=== PATIENT | female | born 1935 | race Caucasian/White ===

== ENCOUNTER 2016-07-19 10:15 | Outpatient (CLI) | payer MEDICARE, OTHER ==
[2016-04-12 16:24] VITALS: BP 154/56
== END 2016-07-19 10:16 ==
LOC: LABRHC 10:15
PROVIDERS: ATTEND Family Medicine
DX: N39.498 Other specified urinary incontinence (principal)
CPT/HCPCS: 87086

== ENCOUNTER 2016-09-30 22:27 | Emergency (ER) | payer MEDICARE, OTHER ==
[2016-09-30] MEDS ORDERED: KETOROLAC TROMETHAMINE 60 MG/2 ML VIAL ONE (23:52)
[2016-10-01] MEDS ORDERED: LORazepam 1 MG TABLET PO ONE (00:03)
[2016-10-01] MEDS ORDERED: KETOROLAC TROMETHAMINE 60 MG/2 ML VIAL IM ONE (00:04)
--- NOTE | 2016-10-01 00:34 | Diagnostic Imaging Report ---
ADRIAN GUTIERREZ~ [facility] [address] [address] ~ ~ ~ ~ Report Submission Date: Oct 01, 2016 12:02:30 AM CDT Patient ~ Study Name: EDUARDO DARLING ~ Date: Sep 30, 2016 11:05:21 PM CDT ~ Modality Type: CR Gender: F ~ Description: PELVIS : 35 ~ Institution: [facility] Physician: ADRIAN GUTIERREZ ~ ~ ~ ~ Left hip - one-view Clinical history: ~Fall 2 hours ago. ~Pain. Findings: ~Examination left hip in single AP view fails to demonstrate evidence of fracture. ~Mild narrowing of the hip joint space is seen. ~There is no lytic or blastic lesion. Impression: 1. ~Mild degenerative changes. 2. ~No fracture. ~ Electronically signed on Oct 01, 2016 12:02:30 AM CDT by: Herber LEDESMA
--- NOTE | 2016-10-01 00:35 | Diagnostic Imaging Report ---
ADRIAN GUTIERREZ~ [facility] [address] [address] ~ ~ ~ ~ Report Submission Date: Oct 01, 2016 12:03:41 AM CDT Patient ~ Study Name: EDUARDO DARLING ~ Date: Sep 30, 2016 11:31:58 PM CDT ~ Modality Type: CR Gender: F ~ Description: LOWER EXTREMITY : 35 ~ Institution: [facility] Physician: ADRIAN GUTIERREZ ~ ~ ~ ~ Bilateral knees - three views Clinical history: ~Fall 2 hours ago. ~Pain. ~History of knee replacements. Findings: ~Examination of the right and left knees in AP, lateral and sunrise views demonstrates bilateral total knee replacements. ~Prosthetic components are normally seated in the unga bony structures. ~There is no evident fracture and no lytic or blastic lesion. ~There is no joint effusion. Impression: 1. ~Postop bilateral total knee replacements. 2. ~No fracture. ~ Electronically signed on Oct 01, 2016 12:03:41 AM CDT by: Herber LEDESMA
--- NOTE | 2016-10-01 00:37 | Diagnostic Imaging Report ---
ADRIAN GUTIERREZ~ [facility] [address] [address] ~ ~ ~ ~ Report Submission Date: Oct 01, 2016 12:05:49 AM CDT Patient ~ Study Name: EDUARDO DARLING ~ Date: Sep 30, 2016 10:58:19 PM CDT ~ Modality Type: CR Gender: F ~ Description: SPINE : 35 ~ Institution: [facility] Physician: ADRIAN GUTIERREZ ~ ~ ~ ~ Lumbar spine - three views Clinical history: ~Fall 2 hours ago. ~Lower back pain. Findings: ~Examination of the lumbar spine in AP, lateral and lateral coned- down views demonstrates post vertebroplasty changes at T12 and L1. ~There is compression deformity of the superior endplate of L2 that is of uncertain age. ~ Degenerative changes are seen throughout the facet joints. ~Vascular calcification is incidentally noted. Impression: 1. ~Postop vertebroplasty T12 and L1. 2. ~Compression of superior endplate of L2 with 20% loss of vertebral height that is of uncertain age. 3. ~Spondylosis. ~ Electronically signed on Oct 01, 2016 12:05:49 AM CDT by: Herber LEDESMA
[2016-10-01 05:29] VITALS: BP 141/50
--- NOTE | 2016-10-01 06:35 | ED Physician Documentation ---
Fall - HISTORIAN Historian: patient - HPI Stated Complaint: fall/injury Chief Complaint: Fall Additional Information: hurt knees, left hip, l-spine Onset: just prior to arrival Where: home Context: tripped r: moderate Associated Symptoms:: no loss of consciousness Location of Pain/Injury: lower back, lower extremity (knees), hip Injury to Right Extremity: knee Injury to Left Extremity: hip, knee Further Comments: no - ROS CONST: no problems NEURO: denies: dizziness, anxiety, depression MS/SKIN/LYMPH: back pain EYES/ENT: none CVS/RESP: none GI/: denies: problems urinating, nausea, vomiting - PAST HX Past History: other (back fxs, ddd) Immunizations: referred to PCP Allergies/Adverse Reactions: Allergies Allergy/AdvReac Type Severity Reaction Status Date / Time sulfamethoxazole Allergy Intermediate RASH Verified 09/30/16 23:26 [From Bactrim] trimethoprim [From Bactrim] Allergy Intermediate RASH Verified 09/30/16 23:26 adhesive Allergy Verified 09/30/16 23:26 amitriptyline Allergy Verified 09/30/16 23:26 amoxicillin trihydrate Allergy Verified 09/30/16 23:26 [From Augmentin] butorphanol Allergy Verified 09/30/16 23:26 celecoxib [From Celebrex] Allergy Verified 09/30/16 23:26 clarithromycin [From Biaxin] Allergy Verified 09/30/16 23:26 codeine Allergy Verified 09/30/16 23:26 enalapril maleate Allergy Verified 09/30/16 23:26 [From Vasotec] enalaprilat dihydrate Allergy Verified 09/30/16 23:26 [From Vasotec] erythromycin base Allergy Verified 09/30/16 23:26 etodolac [From Lodine] Allergy Verified 09/30/16 23:26 fluoxetine HCl [From Prozac] Allergy Verified 09/30/16 23:26 gabapentin [From Neurontin] Allergy Verified 09/30/16 23:26 guaifenesin Allergy Verified 09/30/16 23:26 iodine Allergy Verified 09/30/16 23:26 lansoprazole [From Prevacid] Allergy Verified 09/30/16 23:26 levetiracetam [From Keppra] Allergy Verified 09/30/16 23:26 nortriptyline Allergy Verified 09/30/16 23:26 potassium clavulanate Allergy Verified 09/30/16 23:26 [From Augmentin] pseudoephedrine Allergy Verified 09/30/16 23:26 sucralfate [From Carafate] Allergy Verified 09/30/16 23:26 topiramate [From Topamax] Allergy Verified 09/30/16 23:26 tramadol HCl [From Ultram] Allergy Verified 09/30/16 23:26 valdecoxib [From Bextra] Allergy Verified 09/30/16 23:26 Home Medications: Ambulatory Orders Medication Instructions Recorded Fluticasone Propionate [Flonase] 1 spray NS D 08/26/14 Meclizine HCl 25 mg PO QID PRN #1 bottle 04/12/16 - SOCIAL HX Smoking History: non-smoker Alcohol Use: none Drug Use: none - FAMILY HX Family History: no significant history - VITAL SIGNS Vital Signs: Vital Signs Temp Pulse Resp BP Pulse Ox 97.5 F L 74 16 141/50 98 10/01/16 01:00 10/01/16 01:00 10/01/16 01:00 10/01/16 01:00 10/01/16 01:00 - REVIEWED ASSESSMENTS Nursing Assessment Reviewed: Yes Vitals Reviewed: Yes Progress - Results/Orders Results/Orders: x-rays l-spine, left hip, knees ordered - Progress Progress: pt. given 60 mg toradol im and 1 mg ativan p.o. with improved anxiety and pain Critical Care Note - Critical Care Note Total Time (mins): 0 ED Results Lab/Radiology - Lab Results Lab Results: none ordered - Radiology Radiology Impressions: knees and hip neg, l-spine old compression fx and vertebroplasties - Orders Orders: ED Orders Category Date Time Status BILAT KNEES 3 VIEW [RAD] Stat Exams 09/30/16 Completed L SPINE 2 OR 3 VIEWS [RAD] Stat Exams 09/30/16 Completed LT HIP 1V [RAD] Routine Exams 09/30/16 Completed Ketorolac Tromethamine [Toradol] Med 09/30/16 23:52 Discontinued 60 mg .ROUTE .STK-MED ONE Ketorolac Tromethamine [Toradol] Med 10/01/16 00:04 Discontinued 60 mg IM NOW ONE LORazepam [Ativan] Med 10/01/16 00:03 Discontinued 1 mg PO NOW ONE Fall Physical Exam - Physical Exam General Appearance: alert, moderate distress, anxious Head: non-tender, no swelling, no obvious injury. No: raccoon eyes, Álvarez's sign, trauma Neck: non-tender, painless ROM, trachea midline Eye: SHAAN, EOMI, lids & conjunct. nml, EOM palsy, EOM entrapment ENT: nml external inspection, no dental injury, no oral injury, airway nml Resp/CVS: chest non-tender, no ecchymosis, breath sounds nml, no resp. distress , heart sounds nml. No: rib tenderness, rib palpable fracture Abdomen: soft, no organomegaly, normal bowel sounds, no abdominal bruit, no distension, non-tender Neuro: oriented x3, CN's nml as tested, sensation nml, motor nml, other (anxious ) Skin: color nml, ecchymosis (knees) Back: normal inspection Extremities: atraumatic, pelvis stable, hips non-tender, no pedal edema, nml ROM Joint: joints nml, nml ROM. No: ligamentous instability - Fernando Coma Score Eyes Open: Spontaneous Speech: Oriented Motor: Obeys Commands Discharge Clincal Impression: lumbar strain Home Medications: Ambulatory Orders Fluticasone Propionate [Flonase] 1 spray NS D 08/26/14 Meclizine HCl 25 mg PO QID PRN #1 bottle 04/12/16 Comments: discharged with normal home pain meds Condition: Stable Disposition: HOME, SELF-CARE Decision to Admit: NO Decision Time: 01:00
== END 2016-10-01 01:00 | disposition home or self-care (01) ==
LOC: ED 22:27
DX: S39.012A Strain of muscle, fascia and tendon of lower back, initial encounter (principal); X58.XXXA Exposure to other specified factors, initial encounter; Y93.9 Activity, unspecified; Y99.9 Unspecified external cause status
CPT/HCPCS: 72100; 73501; 73562; J1885; 96372; 99283

== ENCOUNTER 2016-10-10 10:29 | Outpatient (CLI) | payer MEDICARE, OTHER ==
--- NOTE | 2016-10-10 13:25 | Diagnostic Imaging Report ---
[facility] [address] [facility].[address] [address] Report Submission Date: October 10, 2016 11:23:57 AM CDT Patient Study Name: EDUARDO DARLING Date: October 10, 2016 11:01:54 AM CDT Modality Type: CR Gender: F Description: LOWER EXTREMITY : 35 Institution: [facility] Physician MONA GONZALEZ - JENNA EXAMINATION: Left foot, three views. HISTORY: PAIN IN LEFT 3RD DIGIT AFTER FALL 2 WEEKS AGO. BRUISING AND SWELLING OF 3RD DIGIT FINDINGS: The osseous structures are intact without evidence of acute fracture. There is mild hallux valgus deformity and degenerative changes the 1st metatarsophalangeal joint space. Plantar and dorsal calcaneal enthesophytes are present. IMPRESSION: 1. No acute osseous injury. 2. Mild hallux valgus and degenerative changes of the 1st metatarsophalangeal joint Electronically signed on October 10, 2016 11:23:57 AM CDT by: Juan LEDESMA
== END 2016-10-10 10:30 ==
LOC: RAD 10:29
PROVIDERS: ATTEND Family Medicine
DX: E55.9 Vitamin D deficiency, unspecified (principal); M79.672 Pain in left foot
CPT/HCPCS: 36415; 73630; 82306; 84550

== ENCOUNTER 2016-10-28 12:03 | Outpatient (CLI) | payer MEDICARE, OTHER ==
[2016-10-28 12:29] LABS: APPEARANCE,URINE Clear (CLEAR); COLOR,URINE Yellow (YELLOW); OCCULT BLOOD,URINE 2+ (NEGATIVE); PH URINE 5.5 (5.0 - 8.0)
[2016-10-28 12:44] LABS: AMORPHOUS SEDIMENT,UR FEW (NEGATIVE)
[2016-10-28 12:52] LABS: eGFR (African) > 60; eGFR (Non-African) > 60
== END 2016-10-28 12:04 ==
LOC: LAB 12:03
PROVIDERS: ATTEND Family Medicine
DX: Z51.81 Encounter for therapeutic drug level monitoring (principal); R30.0 Dysuria
CPT/HCPCS: 36415; 80048; 81002

== ENCOUNTER 2017-03-01 10:43 | Outpatient (CLI) | payer MEDICARE, OTHER ==
--- NOTE | 2017-03-01 14:55 | Diagnostic Imaging Report ---
MONA GONZALEZ [facility] [address] [facility].[address] [address] Report Submission Date: Mar 01, 2017 11:38:08 AM CDT Patient Study Name: EDUARDO DARLING Date: Mar 01, 2017 10:49:47 AM CDT Modality Type: CR Gender: F Description: SINUS : 35 Institution: [facility] Physician: MONA GONZALEZ Examination: Plain film sinus History: Congestion Comparison exams: None available Findings: 3 views of the sinuses does not demonstrate opacification or air fluid level within the maxillary sinuses. Remaining visualized sinuses are without irregularity. No osseous abnormality. Dental hardware. Impression: No sinus opacification or air fluid level by film sensitivity. Consider CT sinus to better evaluate if clinically warranted. Electronically signed on Mar 01, 2017 11:38:08 AM CDT by: Manuel LEDESMA
== END 2017-03-01 10:44 ==
LOC: RAD 10:43
PROVIDERS: ATTEND Family Medicine
DX: R09.81 Nasal congestion (principal)
CPT/HCPCS: 70220

== ENCOUNTER 2017-04-04 15:08 | Emergency (ER) | payer MEDICARE, OTHER ==
--- NOTE | 2017-04-04 15:33 | ED Physician Documentation ---
Fall - HISTORIAN Historian: patient - HPI Chief Complaint: Fall Additional Information: Patient states that she fell backwards about 4 days ago. Has to call the ambulance to help get her up. Seemed to be doing well. This AM started to have some increase mid thoracic area. Movement, pushing up from chair seems to make the pain worse. Lidoderm patch seem to help some. Patient has noticed that she has developed some ecchymosis to the right axilla area. Has been having some chest pain also anteriorly. Worse with deep breathing and movement. Today seemed to be getting worse. Patient's other chronic pains are stable. Onset: days ago (4 days ago) Where: home r: moderate Associated Symptoms:: no loss of consciousness Location of Pain/Injury: mid back, other (chest) Injury to Right Extremity: none Injury to Left Extremity: none - ROS CONST: no problems. denies: fever, chills NEURO: depression. denies: dizziness, anxiety MS/SKIN/LYMPH: weakness (generalized) - PAST HX Past History: other (OA chronic pain, HTN, neuropathy, hypothyroidism) Immunizations: referred to PCP Allergies/Adverse Reactions: Allergies Allergy/AdvReac Type Severity Reaction Status Date / Time sulfamethoxazole Allergy Intermediate RASH Verified 09/30/16 23:26 [From Bactrim] trimethoprim [From Bactrim] Allergy Intermediate RASH Verified 04/04/17 15:37 cephalexin monohydrate Allergy Mild itching Verified 04/04/17 15:37 [From Keflex] adhesive Allergy Verified 04/04/17 15:37 amitriptyline Allergy Verified 04/04/17 15:37 amoxicillin trihydrate Allergy Verified 04/04/17 15:37 [From Augmentin] butorphanol Allergy Verified 04/04/17 15:37 celecoxib [From Celebrex] Allergy Verified 04/04/17 15:37 clarithromycin [From Biaxin] Allergy Verified 04/04/17 15:37 codeine Allergy Verified 04/04/17 15:37 enalapril maleate Allergy Verified 04/04/17 15:37 [From Vasotec] enalaprilat dihydrate Allergy Verified 04/04/17 15:37 [From Vasotec] erythromycin base Allergy Verified 04/04/17 15:37 etodolac [From Lodine] Allergy Verified 04/04/17 15:37 fluoxetine HCl [From Prozac] Allergy Verified 04/04/17 15:37 gabapentin [From Neurontin] Allergy Verified 04/04/17 15:37 guaifenesin Allergy Verified 04/04/17 15:37 iodine Allergy Verified 04/04/17 15:37 lansoprazole [From Prevacid] Allergy Verified 04/04/17 15:37 levetiracetam [From Keppra] Allergy Verified 04/04/17 15:37 nortriptyline Allergy Verified 04/04/17 15:37 potassium clavulanate Allergy Verified 04/04/17 15:37 [From Augmentin] pseudoephedrine Allergy Verified 04/04/17 15:37 sucralfate [From Carafate] Allergy Verified 04/04/17 15:37 topiramate [From Topamax] Allergy Verified 04/04/17 15:37 tramadol HCl [From Ultram] Allergy Verified 04/04/17 15:37 valdecoxib [From Bextra] Allergy Verified 04/04/17 15:37 ketorolac tromethamine AdvReac Face Verified 04/04/17 15:37 [From Toradol] Swelling Home Medications: Ambulatory Orders Medication Instructions Recorded Fluticasone Propionate [Flonase] 1 spray NS D 08/26/14 Atenolol [Atenolol] 50 mg PO D 04/04/17 - SOCIAL HX Smoking History: non-smoker Alcohol Use: none Drug Use: none - FAMILY HX Family History: no significant history - VITAL SIGNS Vital Signs: Vital Signs Temp Pulse Resp BP Pulse Ox 141/50 10/01/16 01:00 - REVIEWED ASSESSMENTS Nursing Assessment Reviewed: Yes Vitals Reviewed: Yes ED Results Lab/Radiology - Radiology Radiology Impressions: Examination: Plain film thoracic spine History: Back discomfort Findings: 3 views of the thoracic spine demonstrates osteopenia. Scattered osteophytes and mild degenerative wedging. Lower thoracic kyphoplasty with angulation. No prevertebral normality. Impression: Osteophytes and degenerative changes. Lower lumbar kyphoplasty. Correlation with older exams recommended when become available. Examination: Plain film chest/ribs History: Injury Findings: 7 views of the chest and ribs normal cortical margins. No fracture or dislocation. Lung alfonso without focal infiltrative process. Right lower lung granuloma. Possible left midlung granuloma /density. The wall Thoracic spine kyphoplasty. Impression: No rib fracture. No acute pulmonary process. Right lower lung granuloma and left midlung density - correlate with older studies if available. Fall Physical Exam - Physical Exam General Appearance: alert, moderate distress, anxious Head: non-tender, no swelling Neck: non-tender, painless ROM, trachea midline ENT: nml external inspection Resp/CVS: no resp. distress, heart sounds nml, rib tenderness (bilateral lateral chest tenderness). No: no ecchymosis (ecchymosis to the right axilla area), rib palpable fracture, crepitus, subcutaneous emphysema Abdomen: soft, no organomegaly, normal bowel sounds Neuro: oriented x3, mood/affect nml Skin: color nml, no rash Back: vertebral tenderness (over midthoracic area), other (no bony abnl noted. ) Discharge Clincal Impression: Thoracic back pain Referrals: Sajan Dewitt MD [Primary Care Provider] - 2 Days Additional Instructions: Try using a warm compress ot the back area without the lidoderm patch. You may put on the lidoderm patch fi you feel that it is helping. Take your other pain medication has ordered. Condition: Stable Disposition: 01 HOME, SELF-CARE Decision to Admit: NO Date of Decison to Admit: 04/04/17 Decision Time: 16:58
[2017-04-04] MEDS: fentaNYL CITRATE/PF 100 MCG/ 2ML AMP IM ONE (16:28)
[2017-04-04 17:13] VITALS: BP 143/72
--- NOTE | 2017-04-04 18:18 | Diagnostic Imaging Report ---
[facility] [address] [facility].[address] [address] Report Submission Date: Apr 04, 2017 4:35:07 PM CDT Patient Study Name: EDUARDO DARLING Date: Apr 04, 2017 4:07:56 PM CDT Modality Type: CR Gender: F Description: SPINE : 35 Institution: [facility] Physician: MONA GONZALEZ - KEITH Examination: Plain film thoracic spine History: Back discomfort Findings: 3 views of the thoracic spine demonstrates osteopenia. Scattered osteophytes and mild degenerative wedging. Lower thoracic kyphoplasty with angulation. No prevertebral normality. Impression: Osteophytes and degenerative changes. Lower lumbar kyphoplasty. Correlation with older exams recommended when become available. Electronically signed on Apr 04, 2017 4:35:07 PM CDT by: Manuel LEDESMA
--- NOTE | 2017-04-04 18:19 | Diagnostic Imaging Report ---
[facility] [address] [facility].[address] [address] Report Submission Date: Apr 04, 2017 4:31:20 PM CDT Patient Study Name: EDUARDO DARLING Date: Apr 04, 2017 3:56:48 PM CDT Modality Type: CR Gender: F Description: CHEST : 35 Institution: [facility] Physician: MONA GONZALEZ - KEITH Examination: Plain film chest/ribs History: Injury Findings: 7 views of the chest and ribs normal cortical margins. No fracture or dislocation. Lung alfonso without focal infiltrative process. Right lower lung granuloma. Possible left midlung granuloma /density. The wall Thoracic spine kyphoplasty. Impression: No rib fracture. No acute pulmonary process. Right lower lung granuloma and left midlung density - correlate with older studies if available. Electronically signed on Apr 04, 2017 4:31:20 PM CDT by: Manuel LEDESMA
== END 2017-04-04 17:05 | disposition home or self-care (01) ==
LOC: ED 15:08
DX: M54.6 Pain in thoracic spine (principal); W19.XXXA Unspecified fall, initial encounter; Y93.9 Activity, unspecified; Y99.9 Unspecified external cause status
CPT/HCPCS: 71110; 72072; J3010; 96372; 99283

== ENCOUNTER 2017-06-13 13:50 | Outpatient (CLI) | payer OTHER | END 2017-06-13 13:52 | LOC: LAB 13:50 | PROVIDERS: ATTEND Family Medicine | DX: H10.33 Unspecified acute conjunctivitis, bilateral (principal) | CPT/HCPCS: 87070 ==

== ENCOUNTER 2017-09-15 14:21 | Emergency (ER) | payer MEDICARE, OTHER ==
--- NOTE | 2017-09-15 14:46 | ED Physician Documentation ---
General Adult - HISTORIAN Historian: patient - HPI Stated Complaint: sore on leg Chief Complaint: General Adult Onset: days ago Timing: still present Severity: moderate Further Comments: yes (Pt is an 81 yo female with b/l LE edema and a wound on her R ankle, for which she is being followed at wound clinic. Pt had been seen at [facility], but is to be seen next week by Dr. Saunders at [facility]. Pt is here for pain control. Pt is rx'd oxycontin 10 mg po bid for pain control of back pain, but this has not controlled her leg pain, which kept her awake last night and which has led to her also having a headache today. Pt has numerous allergies or adverse reactions to many medications.) - ROS CONST: no problems EYES/ENT: none CVS/RESP: none GI/: none MS/SKIN/LYMPH: other (R leg pain, with edema, and wound on R ankle) NEURO/PSYCH: headache - PAST HX Past History: other (OA, chronic pain, HTN, neuropathy, hypothyroidism, back injury) Surgeries/Procedures: cholecystectomy, hysterectomy, other (appendectomy, catarac surgery, R knee, L knee, ) Allergies/Adverse Reactions: Allergies Allergy/AdvReac Type Severity Reaction Status Date / Time sulfamethoxazole Allergy Intermediate RASH Verified 09/15/17 14:55 [From Bactrim] trimethoprim [From Bactrim] Allergy Intermediate RASH Verified 09/15/17 14:55 adhesive Allergy Verified 09/15/17 14:55 amitriptyline Allergy Verified 09/15/17 14:55 amoxicillin trihydrate Allergy Verified 09/15/17 14:55 [From Augmentin] butorphanol Allergy Verified 09/15/17 14:55 celecoxib [From Celebrex] Allergy Verified 09/15/17 14:55 clarithromycin [From Biaxin] Allergy Verified 09/15/17 14:55 codeine Allergy Verified 09/15/17 14:55 enalapril maleate Allergy Verified 09/15/17 14:55 [From Vasotec] enalaprilat dihydrate Allergy Verified 09/15/17 14:55 [From Vasotec] erythromycin base Allergy Verified 09/15/17 14:55 etodolac [From Lodine] Allergy Verified 09/15/17 14:55 fluoxetine HCl [From Prozac] Allergy Verified 09/15/17 14:55 gabapentin [From Neurontin] Allergy Verified 09/15/17 14:55 guaifenesin Allergy Verified 09/15/17 14:55 iodine Allergy Verified 09/15/17 14:55 lansoprazole [From Prevacid] Allergy Verified 09/15/17 14:55 levetiracetam [From Keppra] Allergy Verified 09/15/17 14:55 nortriptyline Allergy Verified 09/15/17 14:55 NSAIDS (Non-Steroidal Allergy Verified 09/15/17 14:55 Anti-Inflamma potassium clavulanate Allergy Verified 09/15/17 14:55 [From Augmentin] pseudoephedrine Allergy Verified 09/15/17 14:55 sucralfate [From Carafate] Allergy Verified 09/15/17 14:55 topiramate [From Topamax] Allergy Verified 09/15/17 14:55 tramadol HCl [From Ultram] Allergy Verified 09/15/17 14:55 valdecoxib [From Bextra] Allergy Verified 09/15/17 14:55 ciprofloxacin AdvReac Severe Constipatio Verified 09/15/17 14:55 n ketorolac tromethamine AdvReac Face Verified 09/15/17 14:55 [From Toradol] Swelling Home Medications: Ambulatory Orders Medication Instructions Recorded Fluticasone Propionate [Flonase] 1 spray NS D 08/26/14 Atenolol [Atenolol] 50 mg PO D 04/04/17 - SOCIAL HX Smoking History: non-smoker - FAMILY HX Family History: No - VITAL SIGNS Vital Signs: Vital Signs Temp Pulse Resp BP Pulse Ox 143/72 04/04/17 17:11 - REVIEWED ASSESSMENTS Nursing Assessment Reviewed: Yes Vitals Reviewed: Yes Progress - Progress Progress: Dilaudid 1 mg IM For pain you may take one additional dose of your prescribed Oxycontin 10 mg daily (starting tomorrow) until follow up with your primary provider for wound care. Rx Oxycontin 10 mg. Sig 1 po q 8 - 12 hr prn. #10 [to supplement previously rx 'd] General Adult Physical Exam - PHYSICAL EXAM GENERAL APPEARANCE: moderate distress NECK: normal inspection, supple RESPIRATORY: no resp distress, chest non-tender, breath sounds normal CVS: reg rate & rhythm, heart sounds normal BACK: normal inspection SKIN: other (B/l LE edema, R>L, with ulceration over R lateral malleolus) EXTREMITIES: other (B/l LE edema, R>L, with ulceration over R lateral malleolus) NEURO: oriented X3, motor nml, sensation nml Discharge Clincal Impression: LE edema with ulceration R ankle Leg pain Qualifiers: Laterality: right Qualified Code(s): M79.604 - Pain in right leg Referrals: Sajan Dewitt MD [Primary Care Provider] - 2 Days Condition: Stable Disposition: 01 HOME, SELF-CARE Decision to Admit: NO Decision Time: 15:24
[2017-09-15] MEDS ORDERED: HYDROmorphone HCL/PF 1 MG/ML DISP.SYRIN IM ONE (15:08)
[2017-09-15 15:37] VITALS: BP 140/60
== END 2017-09-15 15:29 | disposition home or self-care (01) ==
LOC: ED 14:21
DX: M79.604 Pain in right leg (principal); R60.9 Edema, unspecified; L97.319 Non-pressure chronic ulcer of right ankle with unspecified severity
CPT/HCPCS: 96372; 99283; J1170

== ENCOUNTER 2017-09-26 16:22 | Emergency (ER) | payer OTHER ==
--- NOTE | 2017-09-26 16:42 | ED Physician Documentation ---
Fall - HISTORIAN Historian: patient - HPI Stated Complaint: fall Chief Complaint: Fall Additional Information: Patient states that today while trying to get ready to go somewhere she lost her balance. Patient fell on her left knee. Chronic back pain is about the same. No head injury noted. Onset: just prior to arrival Where: home Context: lost balance r: mild Associated Symptoms:: no loss of consciousness Location of Pain/Injury: lower back, lower extremity (left) Injury to Left Extremity: leg (him him him him him him him him him him him him him him him him him) - ROS CONST: no problems. denies: fever, chills - PAST HX Past History: other (OA, HTN, peripheral vascular disease, hypothyroidism) Allergies/Adverse Reactions: Allergies Allergy/AdvReac Type Severity Reaction Status Date / Time sulfamethoxazole Allergy Intermediate RASH Verified 09/26/17 16:37 [From Bactrim] trimethoprim [From Bactrim] Allergy Intermediate RASH Verified 09/26/17 16:37 adhesive Allergy Verified 09/26/17 16:37 amitriptyline Allergy Verified 09/26/17 16:37 amoxicillin trihydrate Allergy Verified 09/26/17 16:37 [From Augmentin] butorphanol Allergy Verified 09/26/17 16:37 celecoxib [From Celebrex] Allergy Verified 09/26/17 16:37 clarithromycin [From Biaxin] Allergy Verified 09/26/17 16:37 codeine Allergy Verified 09/26/17 16:37 enalapril maleate Allergy Verified 09/26/17 16:37 [From Vasotec] enalaprilat dihydrate Allergy Verified 09/26/17 16:37 [From Vasotec] erythromycin base Allergy Verified 09/26/17 16:37 etodolac [From Lodine] Allergy Verified 09/26/17 16:37 fluoxetine HCl [From Prozac] Allergy Verified 09/26/17 16:37 gabapentin [From Neurontin] Allergy Verified 09/26/17 16:37 guaifenesin Allergy Verified 09/26/17 16:37 iodine Allergy Verified 09/26/17 16:37 lansoprazole [From Prevacid] Allergy Verified 09/26/17 16:37 levetiracetam [From Keppra] Allergy Verified 09/26/17 16:37 nortriptyline Allergy Verified 09/26/17 16:37 NSAIDS (Non-Steroidal Allergy Verified 09/26/17 16:37 Anti-Inflamma potassium clavulanate Allergy Verified 09/26/17 16:37 [From Augmentin] pseudoephedrine Allergy Verified 09/26/17 16:37 sucralfate [From Carafate] Allergy Verified 09/26/17 16:37 topiramate [From Topamax] Allergy Verified 09/26/17 16:37 tramadol HCl [From Ultram] Allergy Verified 09/26/17 16:37 valdecoxib [From Bextra] Allergy Verified 09/26/17 16:37 ciprofloxacin AdvReac Severe Constipatio Verified 09/26/17 16:37 n ketorolac tromethamine AdvReac Face Verified 09/26/17 16:37 [From Toradol] Swelling Home Medications: Ambulatory Orders Medication Instructions Recorded Fluticasone Propionate [Flonase] 1 spray NS D 08/26/14 Atenolol [Atenolol] 50 mg PO D 04/04/17 - SOCIAL HX Smoking History: non-smoker Alcohol Use: none Drug Use: none - FAMILY HX Family History: other (father leukemia) - VITAL SIGNS Vital Signs: Vital Signs Temp Pulse Resp BP Pulse Ox 97.7 F 79 18 138/59 94 09/26/17 16:22 09/26/17 16:22 09/26/17 16:22 09/26/17 16:22 09/26/17 16:22 - REVIEWED ASSESSMENTS Nursing Assessment Reviewed: Yes Vitals Reviewed: Yes ED Results Lab/Radiology - Radiology Radiology Impressions: Examination: Plain film left tibia/fibula History: INJURY WITH FALL TODAY (Hx) Comparison exams: None available Findings: 4 views of the left tibia fibula demonstrates knee replacement in place. No evidence for fracture or loosening. Remaining cortical margins are without gross abnormality. Ankle articular degenerative changes. No soft tissue abnormality. Impression: Knee replacement. No acute appearing osseous abnormality. Fall Physical Exam - Physical Exam General Appearance: alert, mild distress Neck: decreased ROM, pain with neck movement (at baseline) Eye: SHAAN ENT: nml external inspection, no oral injury Resp/CVS: chest non-tender, no ecchymosis, breath sounds nml, no resp. distress , heart sounds nml. No: rib tenderness, crepitus, wheezes, rales, rhonchi Abdomen: soft, no organomegaly, normal bowel sounds, no abdominal bruit Neuro: oriented x3, CN's nml as tested, sensation nml, motor nml, mood/affect nml, pediatric physical therapy assistant nml Skin: color nml Extremities: other (8cm hematoma ot the left proximal lower leg. some echymosis distally, no bony abnl noted. ) Joint: joints nml (at baseline), limited ROM (due to arthritis). No: ligamentous instability - [place] Coma Score Eyes Open: Spontaneous Speech: Oriented Motor: Obeys Commands Discharge Clincal Impression: Contusion of lower leg, left Qualifiers: Encounter type: initial encounter Qualified Code(s): S80.12XA - Contusion of left lower leg, initial encounter Referrals: Sajan Dewitt MD [Primary Care Provider] - 2 Days Additional Instructions: Cool compress to the leg for 20 minutes 4-6 times a day for the next 3 days. You will have a lot of bruising tot he lower leg that will continue to develop over the next 1-2 weeks. Triple antibiotic ointment to the skin breakdown area on the left leg. Keep taking pain medication as previously prescribed. Condition: Stable Disposition: 01 HOME, SELF-CARE Decision to Admit: NO Date of Decison to Admit: 09/26/17 Decision Time: 17:47
--- NOTE | 2017-09-26 17:53 | Diagnostic Imaging Report ---
MONA GONZALEZ [facility] [address] [facility].[address] [address] Report Submission Date: Sep 26, 2017 5:47:39 PM CDT Patient Study Name: EDUARDO DARLING Date: Sep 26, 2017 5:19:00 PM CDT Modality Type: DX Gender: F Description: LOWER EXTREMITY : 35 Institution: [facility] Physician: MONA GONZALEZ Examination: Plain film left tibia/fibula History: INJURY WITH FALL TODAY (Hx) Comparison exams: None available Findings: 4 views of the left tibia fibula demonstrates knee replacement in place. No evidence for fracture or loosening. Remaining cortical margins are without gross abnormality. Ankle articular degenerative changes. No soft tissue abnormality. Impression: Knee replacement. No acute appearing osseous abnormality. Electronically signed on Sep 26, 2017 5:47:39 PM CDT by: Manuel LEDESMA
[2017-09-26] MEDS ORDERED: ACETAMINOPHEN 500 MG TABLET ONE (18:02)
[2017-09-26 18:21] VITALS: BP 135/41
== END 2017-09-26 18:05 | disposition home or self-care (01) ==
LOC: ED 16:22
DX: S80.12XA Contusion of left lower leg, initial encounter (principal); W19.XXXA Unspecified fall, initial encounter; Z96.652 Presence of left artificial knee joint; Y92.9 Unspecified place or not applicable
CPT/HCPCS: 73590; 99283

== ENCOUNTER 2017-11-01 08:03 | Outpatient (CLI) | payer OTHER | END 2017-11-01 08:05 | LOC: POD 08:03 | PROVIDERS: ATTEND Podiatrist Public Medicine | DX: L84 Corns and callosities (principal); M20.41 Other hammer toe(s) (acquired), right foot; M20.42 Other hammer toe(s) (acquired), left foot; M79.675 Pain in left toe(s) | CPT/HCPCS: G0463 ==

== ENCOUNTER 2017-11-07 10:23 | Outpatient (CLI) | payer MEDICARE, OTHER ==
--- NOTE | 2017-11-07 17:48 | Diagnostic Imaging Report ---
MONA GONZALEZ [facility] [address] [facility].[address] [address] Report Submission Date: Nov 07, 2017 12:17:35 PM CDT Patient Study Name: EDUARDO DARLING Date: Nov 07, 2017 10:47:25 AM CDT Modality Type: US Gender: F Description: [facility] : 35 Institution: [facility] Physician: MONA GONZALEZ Examination: Ultrasound vein History: LLEV - LT LEG SWELLING (Hx) Findings: Sonographic evaluation of the lower extremity venous system from the groin to the popliteal fossa inclusive. Normal compressibility. No luminal filling defect. Normal waveforms and response to augmentation. No popliteal region fluid collection. Calf vasculature not well visualized. Impression: No evidence for deep venous thrombosis. Electronically signed on Nov 07, 2017 12:17:35 PM CDT by: Manuel LEDESMA
== END 2017-11-07 10:25 ==
LOC: RAD 10:23
PROVIDERS: ATTEND Family Medicine
DX: M79.89 Other specified soft tissue disorders (principal)
CPT/HCPCS: 93971

== ENCOUNTER 2018-01-02 10:28 | Outpatient (CLI) | payer OTHER, MEDICARE | END 2018-01-02 10:30 | LOC: LABRHC 10:28 | PROVIDERS: ATTEND Family Medicine | DX: R39.15 Urgency of urination (principal) | CPT/HCPCS: 87086; 87186 ==

== ENCOUNTER 2018-01-13 14:01 | Emergency (ER) | payer OTHER, MEDICARE ==
--- NOTE | 2018-01-13 14:06 | ED Physician Documentation ---
General Adult - HISTORIAN Historian: patient - HPI Stated Complaint: palpatations Chief Complaint: Palpitations Onset: minutes (30) Timing: better Severity: mild Further Comments: yes (She states while sitting home watching TV she felt her heart was racing and beating funny. She checked on her monitor at home and it read 87 - she reports she is usually 70's. She states she did become fearful and she took an Ativan and Oxycontin at home. she states she is still "so scared" She is tearful. No chest pain. Denies any shortness of air.) - ROS CONST: no problems EYES/ENT: none CVS/RESP: none GI/: none MS/SKIN/LYMPH: none NEURO/PSYCH: anxiety. denies: headache, fainting, dizziness, tingling, difficulty walking, difficulty with speech - PAST HX Past History: hypertension, other (anxiety, chronic pain, hypothyroisism, ) Surgeries/Procedures: hysterectomy, other (total knee, cellulitis revisons. back surgery ) Immunizations: UTD - SOCIAL HX Smoking History: non-smoker Alcohol Use: none Drug Use: none - FAMILY HX Family History: No - VITAL SIGNS Vital Signs: Vital Signs Temp Pulse Resp BP Pulse Ox 135/41 09/26/17 18:19 - REVIEWED ASSESSMENTS Nursing Assessment Reviewed: Yes Vitals Reviewed: Yes <Lisy Marin - Last Filed: 01/13/18 14:18> - VITAL SIGNS Vital Signs: Vital Signs Temp Pulse Resp BP Pulse Ox 99.2 F 78 16 129/51 100 01/13/18 14:05 01/13/18 14:05 01/13/18 14:05 01/13/18 14:05 01/13/18 14:05 <ADA PADILLA - Last Filed: 01/13/18 16:35> - PAST HX Allergies/Adverse Reactions: Allergies Allergy/AdvReac Type Severity Reaction Status Date / Time sulfamethoxazole Allergy Intermediate RASH Verified 01/13/18 14:39 [From Bactrim] trimethoprim [From Bactrim] Allergy Intermediate RASH Verified 01/13/18 14:39 adhesive Allergy Verified 01/13/18 14:39 amitriptyline Allergy Verified 01/13/18 14:39 amoxicillin trihydrate Allergy Verified 01/13/18 14:39 [From Augmentin] butorphanol Allergy Verified 01/13/18 14:39 celecoxib [From Celebrex] Allergy Verified 01/13/18 14:39 clarithromycin [From Biaxin] Allergy Verified 01/13/18 14:39 codeine Allergy Verified 01/13/18 14:39 enalapril maleate Allergy Verified 01/13/18 14:39 [From Vasotec] enalaprilat dihydrate Allergy Verified 01/13/18 14:39 [From Vasotec] erythromycin base Allergy Verified 01/13/18 14:39 etodolac [From Lodine] Allergy Verified 01/13/18 14:39 fluoxetine HCl [From Prozac] Allergy Verified 01/13/18 14:39 gabapentin [From Neurontin] Allergy Verified 01/13/18 14:39 guaifenesin Allergy Verified 01/13/18 14:39 iodine Allergy Verified 01/13/18 14:39 lansoprazole [From Prevacid] Allergy Verified 01/13/18 14:39 levetiracetam [From Keppra] Allergy Verified 01/13/18 14:39 nortriptyline Allergy Verified 01/13/18 14:39 NSAIDS (Non-Steroidal Allergy Verified 01/13/18 14:39 Anti-Inflamma potassium clavulanate Allergy Verified 01/13/18 14:39 [From Augmentin] pseudoephedrine Allergy Verified 01/13/18 14:39 sucralfate [From Carafate] Allergy Verified 01/13/18 14:39 topiramate [From Topamax] Allergy Verified 01/13/18 14:39 tramadol HCl [From Ultram] Allergy Verified 01/13/18 14:39 valdecoxib [From Bextra] Allergy Verified 01/13/18 14:39 ciprofloxacin AdvReac Severe Constipatio Verified 01/13/18 14:39 n ketorolac tromethamine AdvReac Face Verified 01/13/18 14:39 [From Toradol] Swelling Progress - Progress Progress: Labs reassuring. Trop I < 0.03. EKG w/o ischemic changes. Says she had intraocular injections 2 days ago. <ADA PADILLA - Last Filed: 01/13/18 16:35> ED Results Lab/Radiology - Lab Results Lab Results: Lab Results 01/13/18 01/13/18 01/13/18 14:30 14:30 14:30 WBC 11.40 K/ul K/ul (4.00-12.00) RBC 4.05 M/ul M/ul (3.90-5.20) Hgb 13.5 g/dL g/dL (12.0-16.0) Hct 41.0 % % (34.5-46.5) MCV 101.2 fl H fl (80.0-100.0) MCH 33.2 pg pg (28.0-34.0) MCHC 32.8 g/dL g/dL (30.0-36.0) RDW 13.1 % % (11.3-14.3) Plt Count 205 K/mm3 K/mm3 (130-400) Neut % (Auto) 90.6 % H % (39.0-79.0) Lymph % (Auto) 5.8 % L % (16.0-50.0) [place] % (Auto) 2.0 % % (0.0-11.0) Eos % (Auto) 1.0 % % (0.0-6.8) Baso % (Auto) 0.2 (0.0-1.5) Neut # (Auto) 10.3 # k/uL H # k/uL (1.4-7.7) Lymph # (Auto) 0.7 # k/uL # k/uL (0.6-4.0) [place] # (Auto) 0.2 # k/uL # k/uL (0.0-0.9) Eos # (Auto) 0.1 # k/uL # k/uL (0.0-0.6) Baso # (Auto) 0.0 # k/uL # k/uL (0.0-0.5) Reactive Lymphs % 0.4 % % (0.0-5.0) Reactive Lymphs # 0.0 # k/uL # k/uL (0.0-0.8) Sodium 141 mmol/L mmol/L (136-145) Potassium 4.3 mmol/L mmol/L (3.5-5.1) Chloride 100 mmol/L mmol/L (98-107) Total Carbon Dioxide 29 mmol/L mmol/L (22-29) BUN 13 mg/dL mg/dL (6-20) Creatinine 0.83 mg/dL mg/dL (0.40-1.50) Estimated GFR mL/min 81 L Glucose 125 mg/dL H mg/dL (70-99 Fasting) Calcium 9.4 mg/dL mg/dL (8.6-10.2) Total Bilirubin 0.7 mg/dL mg/dL (<1.2) AST 21 U/L U/L (<32) ALT 16 U/L U/L (<34) Alkaline Phosphatase 92 U/L U/L (40-129) Troponin I < 0.03 ng/mL L ng/mL (0.03-0.06) Total Protein 7.4 g/dL g/dL (6.0-8.5) Albumin 4.0 g/dL g/dL (3.5-5.2) - Orders Orders: ED Orders Category Date Time Status CBC/PLATELET/DIFF Stat Lab 01/13/18 14:30 Completed TROPONIN I (cTnI) Stat Lab 01/13/18 14:30 Completed EKG WITH COMPARISON Stat Ther 01/13/18 Ordered <ADA PADILLA - Last Filed: 01/13/18 16:35> General Adult Physical Exam - PHYSICAL EXAM GENERAL APPEARANCE: moderate distress (tearful) EENT: no signs of dehydration NECK: normal inspection RESPIRATORY: no resp distress, chest non-tender, breath sounds normal CVS: reg rate & rhythm, heart sounds normal, equal pulses ABDOMEN: soft, normal bowel sounds, no distension, non-tender BACK: normal inspection SKIN: warm/dry, normal color, other (right lower leg wrapped from a ulcer ) EXTREMITIES: non-tender, edema NEURO: oriented X3 <Lisy Marin - Last Filed: 01/13/18 14:18> Discharge <Lisy Marin - Last Filed: 01/13/18 14:18> Decision to Admit: NO Decision Time: 16:30 <ADA PADILLA - Last Filed: 01/13/18 16:35> Clincal Impression: Rapid or irregular heartbeat Referrals: Sajan Dewitt MD [Primary Care Provider] - 2 Days Condition: Good Disposition: 01 HOME, SELF-CARE
[2018-01-13 15:53] LABS: BASOPHILS % 0.2 (0.0-1.5); MEAN CORPUSCULAR HEMOGLOBIN 33.2 pg (28.0-34.0); MEAN CORPUSCULAR VOLUME 101.2 fl (80.0-100.0); NEUTROPHILS # 10.3 # k/uL (1.4-7.7)
[2018-01-13 16:02] LABS: TOTAL PROTEIN 7.4 g/dL (6.0-8.5)
[2018-01-13 16:48] VITALS: BP 136/48
== END 2018-01-13 16:35 | disposition home or self-care (01) ==
LOC: ED 14:01
DX: R00.9 Unspecified abnormalities of heart beat (principal)
CPT/HCPCS: 80053; 84484; 85025

== ENCOUNTER 2018-02-13 15:03 | Outpatient (CLI) | payer OTHER ==
--- NOTE | 2018-02-13 16:18 | Diagnostic Imaging Report ---
MONA GONZALEZ [facility] [address] [facility].[address] [address] Report Submission Date: Feb 13, 2018 3:43:33 PM CDT Patient Study Name: EDUARDO DARLING Date: Feb 13, 2018 3:11:52 PM CDT Modality Type: DX Gender: F Description: PELVIS : 35 Institution: [facility] Physician: MONA GONZALEZ Right hip History: Pain AP and frogleg lateral projections of the right hip were obtained which demonstrate no significant degenerative findings. There is no evidence for fracture or dislocation. Impression: No evidence for acute fracture or dislocation. No significant degenerative findings especially for the patient's age of 82. Electronically signed on Feb 13, 2018 3:43:33 PM CDT by: Petty LEDESMA
== END 2018-02-13 15:04 ==
LOC: RAD 15:03
PROVIDERS: ATTEND Family Medicine
DX: M25.551 Pain in right hip (principal)
CPT/HCPCS: 73502

== ENCOUNTER 2018-03-26 13:23 | Outpatient (CLI) | payer OTHER, MEDICARE | END 2018-03-26 14:25 | LOC: LABRHC 13:23 | PROVIDERS: ATTEND Family Medicine | DX: N30.01 Acute cystitis with hematuria (principal) | CPT/HCPCS: 87086 ==

== ENCOUNTER 2018-04-23 13:42 | Observation (INO) | payer MEDICARE, OTHER ==
--- NOTE | 2018-04-23 14:00 | ED Physician Documentation ---
Neuro Symptoms - HISTORIAN Historian: patient - HPI Stated Complaint: difficulty swallowing Chief Complaint: General Adult Additional Information: intro self as [employer] [place]. pt presents to the ED via POV with c/o difficulty swallowing and tongue swelling. pt denies contact with any known allergen or any new substance. pt has episodes of difficulty speaking and confusion. reports pt mental status is at baseline. Pt reports that pt has had difficulty swallowing for several months and is worse today. pt reports chronic back and leg pain that is at baseline. pt admits to taking her Rx PRN oxycontin 10 mg and valium 5 mg this morning. pt reports a wound on her right ankle. she sees wound care at [facility]. she reports she has an appointment tomorrow. pt denies current chest pain, dyspnea, syncope/near syncope, headache, dizziness, visual disturbances, n/v/d, fever, rash, sick contacts, dysuria, trauma. melena or hematochezia, change in bowel or bladder function. ROS Negative unless otherwise specified. Last known Well Date: 04/23/18 Last Known Well Time: 08:00 Last known Well Code/Unknown Code: Known Severity: moderate - CHARACTERS OF DEFICIT New Weakness: none Altered Sensation: none Vision Problems: No Impaired Speech/ Swallowing: Yes Decreased Ability: none, other (RLE weakness at baseline) Cognition is Usually: alert, oriented x3 Gait is Usually: uses a walker Associated Symptoms: confused. denies: fever, chills, sweating, chest pain, neck pain, back pain - ROS MENTAL STATUS: trouble swallowing CVS/Resp Upper Extremity Problem: denies: chest pain, shortness of breath, palpitations, cough GI/ DYSPNEA: none MS/SKIN/LYMPH: none Neuro/Psych: other (confusion) - PAST HX Past History: other (HTN, chronic back pain, stage 2 wound to Right ankle, anxiety, hypothyroid, esophageal stricture, peripheral edema, ) Surgeries/Procedures: cholecysectomy, appendectomy (cataracts bilateral, Bilateral knee replacement. cellulitis, back fracture and repair. ), hysterectomy, other (multiple endoscopies, ) Allergies/Adverse Reactions: Allergies Allergy/AdvReac Type Severity Reaction Status Date / Time sulfamethoxazole Allergy Intermediate RASH Verified 04/23/18 14:32 [From Bactrim] trimethoprim [From Bactrim] Allergy Intermediate RASH Verified 04/23/18 14:32 adhesive Allergy Verified 04/23/18 14:32 amitriptyline Allergy Verified 01/13/18 14:39 amoxicillin trihydrate Allergy Verified 04/23/18 14:32 [From Augmentin] butorphanol Allergy Verified 01/13/18 14:39 celecoxib [From Celebrex] Allergy Verified 01/13/18 14:39 citalopram Allergy Verified 04/23/18 14:32 clarithromycin [From Biaxin] Allergy Verified 04/23/18 14:32 codeine Allergy Verified 01/13/18 14:39 doxycycline Allergy Verified 04/23/18 14:32 duloxetine [From Cymbalta] Allergy Verified 04/23/18 14:32 enalapril maleate Allergy Verified 04/23/18 14:32 [From Vasotec] enalaprilat dihydrate Allergy Verified 01/13/18 14:39 [From Vasotec] erythromycin base Allergy Verified 01/13/18 14:39 escitalopram [From Lexapro] Allergy Verified 04/23/18 14:32 etodolac [From Lodine] Allergy Verified 04/23/18 14:32 fluoxetine HCl [From Prozac] Allergy Verified 04/23/18 14:32 gabapentin [From Neurontin] Allergy Verified 04/23/18 14:32 guaifenesin Allergy Verified 04/23/18 14:32 iodine Allergy Verified 04/23/18 14:32 lansoprazole [From Prevacid] Allergy Verified 04/23/18 14:32 levetiracetam [From Keppra] Allergy Verified 04/23/18 14:32 levofloxacin [From Levaquin] Allergy Verified 04/23/18 14:32 lorazepam Allergy Verified 04/23/18 14:32 methylprednisolone Allergy Verified 04/23/18 14:32 nitrofurantoin Allergy Hives Verified 04/23/18 14:32 nortriptyline Allergy Verified 04/23/18 14:32 NSAIDS (Non-Steroidal Allergy Verified 04/23/18 14:32 Anti-Inflamma potassium clavulanate Allergy Verified 04/23/18 14:32 [From Augmentin] pregabalin [From Lyrica] Allergy Verified 04/23/18 14:32 pseudoephedrine Allergy Verified 04/23/18 14:32 sertraline [From Zoloft] Allergy Verified 04/23/18 14:32 sucralfate [From Carafate] Allergy Verified 04/23/18 14:32 topiramate [From Topamax] Allergy Verified 04/23/18 14:32 tramadol HCl [From Ultram] Allergy Verified 04/23/18 14:32 valdecoxib [From Bextra] Allergy Verified 04/23/18 14:32 ciprofloxacin AdvReac Severe Constipatio Verified 04/23/18 14:32 n ketorolac tromethamine AdvReac Face Verified 04/23/18 14:32 [From Toradol] Swelling - FAMILY HX Family History: other (unknown) - SOCIAL HX Smoking History: non-smoker - VITAL SIGNS Vital Signs: Vital Signs Temp Pulse Resp BP Pulse Ox 56 L 12 144/60 95 04/23/18 15:46 04/23/18 15:46 04/23/18 15:46 04/23/18 15:46 - REVIEWED ASSESSMENTS Nursing Assessment Reviewed: Yes Vitals Reviewed: Yes Progress - Results/Orders Results/Orders: NIH Stroke Scale/Score (NIHSS) from [employer] on 04/23/2018 RESULT SUMMARY: 4 points NIH Stroke Scale INPUTS: 1A: Level of consciousness > 0 = Alert; keenly responsive 1B: Ask month and age > 0 = Both questions right 1C: 'Blink eyes' & 'squeeze hands' > 0 = Performs both tasks 2: Horizontal extraocular movements > 0 = Normal 3: Visual alfonso > 0 = No visual loss 4: Facial palsy > 0 = Normal symmetry 5A: Left arm motor drift > 0 = No drift for 10 seconds 5B: Right arm motor drift > 0 = No drift for 10 seconds 6A: Left leg motor drift > 0 = No drift for 5 seconds 6B: Right leg motor drift > 2 = Drift, hits bed 7: Limb Ataxia > 1 = Ataxia in 1 Limb 8: Sensation > 0 = Normal; no sensory loss 9: Language/aphasia > 1 = Mild-moderate aphasia: some obvious changes, without significant limitation 10: Dysarthria > 0 = Normal 11: Extinction/inattention > 0 = No abnormality - Progress Progress: 1500: pt reports decreased tongue swelling and difficulty swallowing after medications. 1529: Consulted with Dr Dewitt- accepted pt for admission to general medical floor observation. DDx for confusion/dysphagia/dysarthria inclues the following: Allergic reaction, metabolic causes (i.e., hyper/hyponatremia, hyper/hypoglycemia, hypercalcemia, hyper/hypothyroidism, hypoxia/hypercapnea, hepatic encephalopathy, uremic encephalopathy, drug intoxication/withdrawal, Wernicke encephalopathy), structural lesions (primary or metastatic tumor, intracranial hemorrhage, infection), cerebrovascular accident, transient ischemic attack, meningitis, encephalitis, seizures, postictal state, hypertensive encephalopathy, vasculitis, arrhythmias, heart failure, endocarditis, esophageal stricture due to pt Hx. Head CT without acute intracranial pathology such as bleed, tumor, edema or subacute infarction. CBC without severe anemia or elevated WBCs. CMP does not indicate renal failure to be the cause of AMS. CMP without significant electrolyte abnormaility to explain the AMS. LFTs without signs of liver failure / hepatic encephalopathy. Soft tissue neck demonstrates left side inflammation without abscess. Patient allergic to IV contrast thus study limited. No s/s of CHF on XR or arrhythmias present while in ED. Based on history, exam and diagnostic testing done on this visit, the most likely etiology is allergic reaction. pt dysarthria and mild confusion likely related to valium and oxycontin taken this morning. - EKG/XRAY/CT Comments: 1434 Rate 52. sinus bradycardia w/ 1st degree block. No ectopy. interp byme ED Results Lab/Radiology - Lab Results Lab Results: Lab Results 04/23/18 04/23/18 04/23/18 13:56 13:56 13:56 WBC 7.40 K/ul K/ul (4.00-12.00) RBC 4.25 M/ul M/ul (3.90-5.20) Hgb 13.8 g/dL g/dL (12.0-16.0) Hct 41.5 % % (34.5-46.5) MCV 98.0 fl fl (80.0-100.0) MCH 32.4 pg pg (28.0-34.0) MCHC 0.0 g/dL L g/dL (30.0-36.0) RDW 13.7 % % (11.3-14.3) Plt Count 228 K/mm3 K/mm3 (130-400) Neut % (Auto) 71.0 % % (39.0-79.0) Lymph % (Auto) 19.7 % % (16.0-50.0) Bryan % (Auto) 5.8 % % (0.0-11.0) Eos % (Auto) 3.2 % % (0.0-6.8) Baso % (Auto) 0.3 (0.0-1.5) Neut # (Auto) 5.3 # k/uL # k/uL (1.4-7.7) Lymph # (Auto) 1.5 # k/uL # k/uL (0.6-4.0) Bryan # (Auto) 0.4 # k/uL # k/uL (0.0-0.9) Eos # (Auto) 0.2 # k/uL # k/uL (0.0-0.6) Baso # (Auto) 0.0 # k/uL # k/uL (0.0-0.5) PT 11.0 Seconds Seconds (9.4-11.6) INR 1.10 (0.9-1.2) APTT 27.6 Seconds Seconds (24.5-32.8) Sodium 143 mmol/L mmol/L (136-145) Potassium 4.2 mmol/L mmol/L (3.5-5.1) Chloride 100 mmol/L mmol/L (98-107) Carbon Dioxide 31 mmol/L H mmol/L (22-30) BUN 20 mg/dL H mg/dL (7-17) Creatinine 0.80 mg/dL mg/dL (0.52-1.04) Estimated Creat Clear 91 Est GFR ( Amer) > 60 (60 - ) Est GFR (Non-Af Amer) > 60 (60 - ) Glucose 99 mg/dL mg/dL (74-106) Calcium 8.7 mg/dL mg/dL (8.4-10.2) Total Bilirubin 0.5 mg/dL mg/dL (0.2-1.3) AST 35 U/L U/L (15-46) ALT 26 U/L U/L (13-69) Alkaline Phosphatase 104 U/L U/L (38-126) Creatine Kinase 57 U/L U/L (30-135) Total Protein 8.1 g/dL g/dL (6.3-8.2) Albumin 3.8 g/dL g/dL (3.5-5.0) - Radiology Radiology Impressions: Report Submission Date: Apr 23, 2018 2:45:04 PM [facility] Patient Study Name: EDUARDO DARLING Date: Apr 23, 2018 2:13:50 PM CUFF SETTER OVERLOCK Modality Type: CT Gender: F Description: CT NECK SOFT TISSUE W/ : 35 Institution: [facility] Physician: ISAEBL BRADLEY Examination: CT neck History: TONGUE SWELLING AND DIFFICULTY SWALLOWING Comparison exams: None provided Technique: CT neck without contrast Findings: Mild inflammatory changes involving the inferior aspect of the left submandibular gland and anterior soft tissue region. No formed fluid collection. Parotid glands are without abnormality. No pathologic adenopathy involving the carotid, jugular and posterior cervical chain regions. Base of the tongue, holden pharynx and prevertebral spaces are without abnormality. Trachea and esophagus are midline. No lower cervical chain irregularities. Enlarged thyroid gland. Degenerative spurring of the cervical vertebral bodies. Apical lung alfonso demonstrate interstitial infiltrates.. Streak artifact from dental hardware. Atherosclerotic disease involving the aortic arch. Skull base structures including brain parenchyma are without abnormality. Impression: Soft tissue inflammation involving the anterior neck soft tissue and inferior margin of the left submandibular gland. No evidence for formed fluid collection to suggest abscess. Lung apical interstitial infiltrates. Enlarged thyroid gland. Electronically signed on Apr 23, 2018 2:45:04 PM [facility] by: Manuel Bazan Report Submission Date: Apr 23, 2018 2:37:45 PM [facility] Patient Study Name: EDUARDO DARLING Date: Apr 23, 2018 2:02:41 PM [employer] SETTER [employer]LOCK Modality Type: CT Gender: F Description: CT BRAIN W/O CONTRAST : 35 Institution: [facility] Physician: ISABEL BRADLEY Examination: CT head without contrast History: TONGUE SWELLING AND DIFFICULTY SWALLOWING Comparison exam: None available Technique: Noncontrast head CT protocol. Findings: Ventricles and sulci are prominent. Cerebrocerebellar parenchyma demonstrates periventricular low attenuation consistent with small vessel disease. No evidence for parenchymal hemorrhage. No evidence for mass or mass effect. No midline shift. No extra axial fluid collections. Partial visualization of the paranasal sinuses, mastoid air cells, orbits, skull and scalp without gross irregularity. Streak artifact from dental hardware. Impression: Advanced age related changes. No acute parenchymal process. No hemorrhage. Electronically signed on Apr 23, 2018 2:37:45 PM [employer] by: Manuel Bazan Report Submission Date: Apr 23, 2018 3:13:20 PM [employer] Patient Study Name: EDUARDO DARLING Date: Apr 23, 2018 2:38:56 PM [employer]TER [employer]LOCK Modality Type: DX Gender: F Description: CHEST : 35 Institution: [facility] Physician: ISABEL BRADLEY Examination: Portable chest History: Evaluate lungs. DIFFICULTY BREATHING (Hx) Comparison exam: 04 April 2017 Findings: Single view of the chest demonstrates a normal cardiac and mediastinal silhouette. Tortuous aorta. Lung alfonso without focal infiltrate. No blunting of the costophrenic margins. Stable right costophrenic margin granuloma. Acromioclavicular joint degenerative changes. Lumbar kyphoplasty. Impression: No acute pulmonary process. Electronically signed on Apr 23, 2018 3:13:20 PM [employer] by: Manuel Bazan - Orders Orders: ED Orders Category Date Time Status Place IV Lock 1T Care 04/23/18 13:45 Active CHEST 1VIEW [RAD] Stat Exams 04/23/[address] BRAIN W/O CONTRAST Stat Exams 04/23/[address] NECK SOFT TISSUE W/O CON Stat Exams 04/23/18 Completed CBC/PLATELET/DIFF Stat Lab 04/23/18 13:56 Completed CMP Stat Lab 04/23/18 13:56 Completed CREATINE KINASE Stat Lab 04/23/18 13:56 Completed PT-INR Stat Lab 04/23/18 13:56 Completed PTT Stat Lab 04/23/18 13:56 Completed TROPONIN I (cTnI) Stat Lab 04/23/18 Completed UA W/MICRO IF INDICATED Stat Lab 04/23/18 15:33 Ordered UDS [DRUG SCREEN URINE MEDICAL ONLY] Routine Lab 04/23/18 Ordered 0.9 % Sodium Chloride [Normal Saline] 1,000 ml Med 04/23/18 14:00 Ordered IV Q10H Famotidine/Pf [Pepcid] Med 04/23/18 14:58 Discontinued 40 mg IVP NOW ONE Famotidine/Pf [Pepcid] Med 04/23/18 14:29 Discontinued 50 mg IVP NOW ONE diphenhydrAMINE HCL [Benadryl] Med 04/23/18 14:28 Discontinued 25 mg IVP NOW ONE methylPREDNISolone SOD SUCC [Solu-MEDROL] Med 04/23/18 14:29 Discontinued 125 mg IVP NOW ONE EKG WITH COMPARISON Stat Ther 04/23/18 Completed Neuro Symptoms Physical Exam - Physical Exam General Appearance: no acute distress, alert, anxious HEENT: no apparent trauma, EOM's intact, PERRL, airway intact, other (able to swallow. no tongue edema noted). No: scleral icterus, pale conjunctivae, deprsd gag reflex, poor handling of secretion, EOM palsy, unequal pupils, ENT inspection nml, tenderness, swelling Neuro/Psych: alert, oriented x3, eyes open, other (See NIH score 4 intermittent confusion) Cranial Nerves: nml as tested Cerebellar: nml as tested Pheripheral Exam: motor nml, sensation nml, reflexes nml, weakness. No: hemiparesis, hemiplegia, pronator drift, altered light-touch, tremor Neck: normal inspection, other (no edema noted). No: lymphadenopathy Respiratory: no resp distress, chest non-tender CVS: reg rate & rhythm, heart sounds normal, no murmur, no gallop, PMI nml, no JVD, other (bradycardia ) Abdomen: non-tender Skin: color nml, decubitus (1 cm circular stage 2 wound to Right ankle. ), other (4 CM area of erythema to abd. no hives present. pt reports itching at site. ) Extremities: non-tender, normal range of motion (RLE decreased mildly atbaseline per patient ), no evidence of injury, edema (1+pedal edema), other Discharge Clincal Impression: Anxiety, Non-healing stage 2 or greater wound Allergic reaction Qualifiers: Encounter type: initial encounter Qualified Code(s): T78.40XA - Allergy, unspecified, initial encounter Condition: Stable Disposition: ADMITTED INPATIENT Decision to Admit: [id number] Date of Decison to Admit: 04/23/18 Decision Time: 15:58
[2018-04-23 14:07] LABS: BASOPHILS % 0.3 (0.0-1.5); EOSINOPHILS % 3.2 % (0.0-6.8); MEAN CORPUSCULAR HEMOGLOBIN 32.4 pg (28.0-34.0); MONOCYTES % 5.8 % (0.0-11.0); NEUTROPHILS # 5.3 # k/uL (1.4-7.7)
[2018-04-23] MEDS ORDERED: diphenhydrAMINE HCL 50 MG/ML VIAL IVP ONE (14:28)
[2018-04-23] MEDS ORDERED: FAMOTIDINE 20 MG/2 ML VIAL IVP ONE ×2 (14:29→14:58)
[2018-04-23] MEDS ORDERED: methylPREDNISolone SOD SUCC 125 MG/2 ML VIAL IVP ONE (14:29)
[2018-04-23] MEDS ORDERED: NORMAL SALINE 1,000 ML IV.SOLN IV ONE (14:33)
[2018-04-23 14:47] LABS: eGFR (Non-African) > 60
[2018-04-23] MEDS: 0.9 % SODIUM CHLORIDE 1,000 ML IV SCH (14:56)
--- NOTE | 2018-04-23 15:07 | Diagnostic Imaging Report ---
ISABEL BRADLEY [facility] [address] [facility] [address] [place] [address]. 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 Findings: Ventricles and sulci are prominent. Cerebrocerebellar parenchyma demonstrates periventricular low attenuation consistent with small vessel disease. No evidence for parenchymal hemorrhage. No evidence for mass or mass effect. No midline shift. No extra axial fluid collections. Partial visualization of the paranasal sinuses, mastoid air cells, orbits, skull and scalp without gross irregularity. Streak artifact from dental hardware. Impression: Advanced age related changes. No acute parenchymal process. No hemorrhage. Electronically signed on Apr 23, 2018 2:37:45 PM [employer] by: Manuel LEDESMA
--- NOTE | 2018-04-23 15:07 | Diagnostic Imaging Report ---
ISABEL BRADLEY [facility] [address] [facility].[address] [address] Report Submission Date: Apr 23, 2018 2:45:04 PM [employer] OPERATOR Patient Study Name: EDUARDO DARLING Date: Apr 23, 2018 2:13:50 PM [employer] OPERATOR Modality Type: CT Gender: F Description: CT NECK SOFT TISSUE W/ : 35 Institution: [facility] Physician: ISABEL BRADLEY Examination: CT neck History: TONGUE SWELLING AND DIFFICULTY SWALLOWING Comparison exams: None provided Technique: CT neck without contrast Findings: Mild inflammatory changes involving the inferior aspect of the left submandibular gland and anterior soft tissue region. No formed fluid collection. Parotid glands are without abnormality. No pathologic adenopathy involving the carotid, jugular and posterior cervical chain regions. Base of the tongue, holden pharynx and prevertebral spaces are without abnormality. Trachea and esophagus are midline. No lower cervical chain irregularities. Enlarged thyroid gland. Degenerative spurring of the cervical vertebral bodies. Apical lung alfonso demonstrate interstitial infiltrates.. Streak artifact from dental hardware. Atherosclerotic disease involving the aortic arch. Skull base structures including brain parenchyma are without abnormality. Impression: Soft tissue inflammation involving the anterior neck soft tissue and inferior margin of the left submandibular gland. No evidence for formed fluid collection to suggest abscess. Lung apical interstitial infiltrates. Enlarged thyroid gland. Electronically signed on Apr 23, 2018 2:45:04 PM [employer] OPERATOR by: Manuel LEDESMA
--- NOTE | 2018-04-23 15:27 | Diagnostic Imaging Report ---
ISABEL BRADLEY [facility] [address] [facility] [address] [address] Report Submission Date: Apr 23, 2018 3:13:20 PM HOME HEALTH AIDE Patient Study Name: EDUARDO DARLING Date: Apr 23, 2018 2:38:56 PM HOME HEALTH AIDE Modality Type: DX Gender: F Description: CHEST : 35 Institution: [facility] Physician: ISABEL BRADLEY Examination: Portable chest History: Evaluate lungs. DIFFICULTY BREATHING (Hx) Comparison exam: 04 April 2017 Findings: Single view of the chest demonstrates a normal cardiac and mediastinal silhouette. Tortuous aorta. Lung alfonso without focal infiltrate. No blunting of the costophrenic margins. Stable right costophrenic margin granuloma. Acromioclavicular joint degenerative changes. Lumbar kyphoplasty. Impression: No acute pulmonary process. Electronically signed on Apr 23, 2018 3:13:20 PM HOME HEALTH AIDE by: Manuel LEDESMA
[2018-04-23 16:51] VITALS: BMI 31.8
[2018-04-23 16:52] LABS: CANNABINOIDS NEGATIVE ng/mL (< 50); METHYLENEDIOXYMETHAMPHETAMINE NEGATIVE ng/mL (<500)
[2018-04-23] MEDS ORDERED: ENOXAPARIN SODIUM 40 MG/0.4 ML DISP.SYRIN SQ SCH (17:00)
[2018-04-23 17:04] LABS: APPEARANCE,URINE CLEAR (CLEAR); COLOR,URINE YELLOW (YELLOW); OCCULT BLOOD,URINE 2+ (NEGATIVE); PH URINE 5.5 (5.0 - 8.0)
[2018-04-23 17:05] LABS: AMORPHOUS SEDIMENT,UR FEW (NEGATIVE)
[2018-04-23] MEDS: oxyCODONE HCL 5 MG TABLET PO SCH (20:18)
[2018-04-23] MEDS: DIAZEPAM 5 MG TABLET PO SCH (20:18)
[2018-04-24] MEDS: 0.9 % SODIUM CHLORIDE 1,000 ML IV SCH (01:48)
[2018-04-24] MEDS ORDERED: LEVOTHYROXINE SODIUM 100 MCG TABLET PO SCH (07:00)
[2018-04-24 07:53] LABS: MEAN CORPUSCULAR HEMOGLOBIN 32.2 pg (28.0-34.0)
[2018-04-24 07:54] LABS: BASOPHILS % 0.1 (0.0-1.5); EOSINOPHILS % 0.8 % (0.0-6.8); MONOCYTES % 1.9 % (0.0-11.0); NEUTROPHILS # 5.7 # k/uL (1.4-7.7)
[2018-04-24 07:55] LABS: eGFR (Non-African) > 60
[2018-04-24] MEDS: oxyCODONE HCL 5 MG TABLET PO SCH (08:24)
[2018-04-24] MEDS: DIAZEPAM 5 MG TABLET PO SCH (08:25)
[2018-04-24] MEDS ORDERED: TOLTERODINE TARTRATE 2 MG CAP.ER.24H PO SCH (09:00)
[2018-04-24] MEDS ORDERED: FUROSEMIDE 20 MG TABLET PO SCH (09:00)
[2018-04-24] MEDS ORDERED: ATENOLOL 25 MG TABLET PO SCH (09:00)
[2018-04-24] MEDS ORDERED: POTASSIUM CHLORIDE 20 MEQ TABLET.ER PO SCH (09:00)
--- NOTE | 2018-04-24 13:18 | Diagnostic Imaging Report ---
MONA GONZALEZ [facility] [address] [facility].[address] [address] Report Submission Date: Apr 24, 2018 1:08:17 PM SLAT TWISTER Patient Study Name: EDUARDO DARLING Date: Apr 24, 2018 12:02:49 PM SLAT TWISTER Modality Type: US Gender: F Description: US CAROTID : 35 Institution: [facility] Physician: MONA GONZALEZ Examination: Carotid artery ultrasound History: Syncope Comparison exams: None available Findings: Right carotid: Common carotid artery peak systolic velocity 88.3 cm/s; end diastolic velocity 11.3 cm/s. Internal carotid artery peak systolic velocity 83.8 cm/s; end diastolic velocity 9.7 cm/s. External carotid artery velocity to 89.4 cm/s. Vertebral artery velocity 41.1 cm/s Vertebral flow antegrade. Normal waveforms. Scattered plaquing specifically at the carotid bulb Left carotid: Common carotid artery peak systolic velocity 94.7 cm/s; end diastolic velocity 13.9 cm/s. Internal carotid artery peak systolic velocity 65.4 cm/s; end diastolic velocity 12.2 cm/s. External carotid artery velocity to 83.5 cm/s. Vertebral artery velocity 43.5 cm/s Vertebral flow antegrade. Normal waveforms. Scattered plaquing specifically at the carotid bulb Right ICA/CCA Ratio: 0.9, Left ICA/CCA Ratio 10.8 Impression: Carotids ratios not elevated. No restriction to hemodynamic flow. Electronically signed on Apr 24, 2018 1:08:17 PM SLAT TWISTER by: Manuel LEDESMA
[2018-04-24 13:21] VITALS: BP 152/80
--- NOTE | 2018-07-18 09:11 | Discharge Summary ---
Discharge Summary - Discharge Sumary History of Present Illness: Patient is and 82-year-old white female who presented to the emergency room yesterday complaining of some difficulties with swallowing and tongue swelling. Patient was felt to be have an allergic reaction was admitted to the hospital for observation care. Allergies/Adverse Reactions: Allergies Allergy/AdvReac Type Severity Reaction Status Date / Time sulfamethoxazole Allergy Intermediate RASH Verified 04/23/18 14:32 [From Bactrim] trimethoprim [From Bactrim] Allergy Intermediate RASH Verified 04/23/18 14:32 adhesive Allergy Verified 04/23/18 14:32 amitriptyline Allergy Verified 01/13/18 14:39 amoxicillin trihydrate Allergy Verified 04/23/18 14:32 [From Augmentin] butorphanol Allergy Verified 01/13/18 14:39 celecoxib [From Celebrex] Allergy Verified 01/13/18 14:39 citalopram Allergy Verified 04/23/18 14:32 clarithromycin [From Biaxin] Allergy Verified 04/23/18 14:32 codeine Allergy Verified 01/13/18 14:39 doxycycline Allergy Verified 04/23/18 14:32 duloxetine [From Cymbalta] Allergy Verified 04/23/18 14:32 enalapril maleate Allergy Verified 04/23/18 14:32 [From Vasotec] enalaprilat dihydrate Allergy Verified 01/13/18 14:39 [From Vasotec] erythromycin base Allergy Verified 01/13/18 14:39 escitalopram [From Lexapro] Allergy Verified 04/23/18 14:32 etodolac [From Lodine] Allergy Verified 04/23/18 14:32 fluoxetine HCl [From Prozac] Allergy Verified 04/23/18 14:32 gabapentin [From Neurontin] Allergy Verified 04/23/18 14:32 guaifenesin Allergy Verified 04/23/18 14:32 iodine Allergy Verified 04/23/18 14:32 lansoprazole [From Prevacid] Allergy Verified 04/23/18 14:32 levetiracetam [From Keppra] Allergy Verified 04/23/18 14:32 levofloxacin [From Levaquin] Allergy Verified 04/23/18 14:32 lorazepam Allergy Verified 04/23/18 14:32 methylprednisolone Allergy Verified 04/23/18 14:32 nitrofurantoin Allergy Hives Verified 04/23/18 14:32 nortriptyline Allergy Verified 04/23/18 14:32 NSAIDS (Non-Steroidal Allergy Verified 04/23/18 14:32 Anti-Inflamma potassium clavulanate Allergy Verified 04/23/18 14:32 [From Augmentin] pregabalin [From Lyrica] Allergy Verified 04/23/18 14:32 pseudoephedrine Allergy Verified 04/23/18 14:32 sertraline [From Zoloft] Allergy Verified 04/23/18 14:32 sucralfate [From Carafate] Allergy Verified 04/23/18 14:32 topiramate [From Topamax] Allergy Verified 04/23/18 14:32 tramadol HCl [From Ultram] Allergy Verified 04/23/18 14:32 valdecoxib [From Bextra] Allergy Verified 04/23/18 14:32 ciprofloxacin AdvReac Severe Constipatio Verified 04/23/18 14:32 n ketorolac tromethamine AdvReac Face Verified 04/23/18 14:32 [From Toradol] Swelling Discharge Summary: Patient was given some Benadryl, famotidine, methylprednisolone with improvement in the swelling of her tongue. Patient swallowing and speech became better. Patient did have a had CT scan done throughout possible CVA. At the time of dismissal patient was felt that she would back to her baseline and patient was discharged in stable condition. Patient was continued on her home medications during her observation care. - Final Diagnosis (1) Allergic reaction Problems: Patient with is advised to watch for any further problems. Patient was advised to try to figure out what the irritating substance may have been. (2) Anxiety Problems: Patient will be continued on home medications. (3) Essential hypertension Problems: Patient will be continued on home medications. (4) Hypothyroidism Problems: Patient will be continued on home medications.
== END 2018-04-24 13:15 | disposition home or self-care (01) ==
LOC: ED 13:42 → SOUTH 15:40
PROVIDERS: ADMIT Family Medicine; ATTEND Family Medicine
DX: T78.40XA Allergy, unspecified, initial encounter (principal); I10 Essential (primary) hypertension; E03.9 Hypothyroidism, unspecified; F41.9 Anxiety disorder, unspecified; L89.512 Pressure ulcer of right ankle, stage 2; Z79.899 Other long term (current) drug therapy; Z51.81 Encounter for therapeutic drug level monitoring
CPT/HCPCS: 70450; 70490; 71045; 80053; 80377; 81002; 82550; 83880; 84439; 84443; 84481; 84484; 85025; 85610; 85730; 87086; 93005; 93880; 96365; 96366; 96375; 99217; 99283; 99284; G0378; J1200; J1650; J2930; J7030; G0481; S1016

== ENCOUNTER 2018-07-23 16:12 | Outpatient (CLI) | payer OTHER, MEDICARE ==
--- NOTE | 2018-07-23 16:56 | Diagnostic Imaging Report ---
MONA GONZALEZ [facility] [address] 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 NO PREVIOUS INJURY OR SX. Comparison exams: None available Findings: 3 views of the right wrist demonstrates osteopenia. Articular degenerative changes. No displaced fracture lucency. No soft tissue abnormality. Impression: Osteopenia and articular degenerative changes. Electronically signed on Jul 23, 2018 4:45:55 PM SHEAR OPERATOR [employer]OMAT[employer] by: Manuel LEDESMA
== END 2018-07-23 16:13 ==
LOC: RAD 16:12
PROVIDERS: ATTEND Family Medicine
DX: M85.88 Other specified disorders of bone density and structure, other site (principal); M24.131 Other articular cartilage disorders, right wrist; M25.531 Pain in right wrist
CPT/HCPCS: 73110

== ENCOUNTER 2018-12-04 19:53 | Emergency (ER) | payer MEDICARE, OTHER ==
[2018-12-04] MEDS ORDERED: fentaNYL CITRATE/PF 100 MCG/2 ML INJ. IV ONE (20:35)
--- NOTE | 2018-12-04 21:02 | ED Physician Documentation ---
Fall - HISTORIAN Historian: patient - HPI Stated Complaint: Fall, c/o pain to Rt hip/LBP/Hematoma Post. head Chief Complaint: Fall Additional Information: Patient is an 82-year-old female who presents to the ER via [facility] s/p fall from a standing position. Patient was getting out of chair to go to the bathroom-stood to quickly-got dizzy and lost her balance. She fell into the book shelf and fell to the floor. She c/o right hip pain, lumbar pain, and hit her (c/o back of the head hurting). She denies any LOC. She did not want to come to the hospital but could not stand by herself at home. She had a decub on the right heal that was treated at the [facility] wound clinic today. She will not allow us to touch it. Onset: just prior to arrival Where: home Context: lost balance, became dizzy r: moderate Associated Symptoms:: no loss of consciousness Location of Pain/Injury: head, lower back, hip Injury to Right Extremity: hip Injury to Left Extremity: none - ROS CONST: no problems NEURO: dizziness MS/SKIN/LYMPH: back pain. denies: weakness EYES/ENT: none CVS/RESP: none GI/: problems urinating (incontinent upon arrival) - PAST HX Past History: other ( HTN, GERD, Depression, Hypothyroid, Peripheral neuropathy, chronic back pain, stage 2 wound on right heel) Immunizations: UTD Allergies/Adverse Reactions: Allergies Allergy/AdvReac Type Severity Reaction Status Date / Time sulfamethoxazole Allergy Intermediate RASH Verified 04/23/18 14:32 [From Bactrim] trimethoprim [From Bactrim] Allergy Intermediate RASH Verified 04/23/18 14:32 adhesive Allergy Verified 04/23/18 14:32 amitriptyline Allergy Verified 01/13/18 14:39 amoxicillin trihydrate Allergy Verified 04/23/18 14:32 [From Augmentin] butorphanol Allergy Verified 01/13/18 14:39 celecoxib [From Celebrex] Allergy Verified 01/13/18 14:39 citalopram Allergy Verified 04/23/18 14:32 clarithromycin [From Biaxin] Allergy Verified 04/23/18 14:32 codeine Allergy Verified 01/13/18 14:39 doxycycline Allergy Verified 04/23/18 14:32 duloxetine [From Cymbalta] Allergy Verified 04/23/18 14:32 enalapril maleate Allergy Verified 04/23/18 14:32 [From Vasotec] enalaprilat dihydrate Allergy Verified 01/13/18 14:39 [From Vasotec] erythromycin base Allergy Verified 01/13/18 14:39 escitalopram [From Lexapro] Allergy Verified 04/23/18 14:32 etodolac [From Lodine] Allergy Verified 04/23/18 14:32 fluoxetine HCl [From Prozac] Allergy Verified 04/23/18 14:32 gabapentin [From Neurontin] Allergy Verified 04/23/18 14:32 guaifenesin Allergy Verified 04/23/18 14:32 iodine Allergy Verified 04/23/18 14:32 lansoprazole [From Prevacid] Allergy Verified 04/23/18 14:32 levetiracetam [From Keppra] Allergy Verified 04/23/18 14:32 levofloxacin [From Levaquin] Allergy Verified 04/23/18 14:32 lorazepam Allergy Verified 04/23/18 14:32 methylprednisolone Allergy Verified 04/23/18 14:32 nitrofurantoin Allergy Hives Verified 04/23/18 14:32 nortriptyline Allergy Verified 04/23/18 14:32 NSAIDS (Non-Steroidal Allergy Verified 04/23/18 14:32 Anti-Inflamma potassium clavulanate Allergy Verified 04/23/18 14:32 [From Augmentin] pregabalin [From Lyrica] Allergy Verified 04/23/18 14:32 pseudoephedrine Allergy Verified 04/23/18 14:32 sertraline [From Zoloft] Allergy Verified 04/23/18 14:32 sucralfate [From Carafate] Allergy Verified 04/23/18 14:32 topiramate [From Topamax] Allergy Verified 04/23/18 14:32 tramadol HCl [From Ultram] Allergy Verified 04/23/18 14:32 valdecoxib [From Bextra] Allergy Verified 04/23/18 14:32 ciprofloxacin AdvReac Severe Constipatio Verified 04/23/18 14:32 n ketorolac tromethamine AdvReac Face Verified 04/23/18 14:32 [From Toradol] Swelling - SOCIAL HX Smoking History: non-smoker Alcohol Use: none Drug Use: none - FAMILY HX Family History: none - VITAL SIGNS Vital Signs: Vital Signs Temp Pulse Resp BP Pulse Ox 98.3 F 67 18 152/82 94 12/04/18 19:53 12/04/18 19:53 12/04/18 19:53 12/04/18 19:53 12/04/18 19:53 - REVIEWED ASSESSMENTS Nursing Assessment Reviewed: Yes Vitals Reviewed: Yes Progress - Progress Progress: 22:[address]- no fractures- will get patient up and see how she ambulates. 22:30 Nursing assisted patient up- she is able to walk using walker- ambulated to the bathroom- Neighbor is here to take patient and spouse home. Patient moving around better. ED Results Lab/Radiology - Radiology Radiology Impressions: Computed tomography pelvis without contrast History: Right hip pain and leg shortening after fall Findings: Transverse pelvis and proximal femur sections are obtained without contrast. Lower lumbar spondylosis, obesity, atherosclerosis, colonic diverticulosis, constipation, and hysterectomy are observed. The urinary bladder is intact. The osseous pelvis and proximal femora are intact without fracture or dislocation. There is no evidence of soft tissue hematoma. Impression: 1. No fracture. 2. Lumbar spondylosis, obesity, colonic diverticulosis, atherosclerosis, and hysterectomy. Computed tomography lumbar spine without contrast History: Low back pain after fall Findings: Transverse lumbar spine sections are obtained without contrast. Chronic T12, L1, and L2 burst fracture deformities are observed. Kyphoplasty has been performed at T12 and L1. There is no evidence of acute fracture. L1-2: Bilateral facet arthropathy and mild central canal narrowing. L2-3: Marked disc space narrowing, disc osteophyte complex formation, and mild rotary lumbar curvature. L3-4: Mild diffuse disc bulging, moderate bilateral facet arthropathy, and borderline central canal stenosis. L4-5: Marked disc space narrowing, diffuse disc osteophyte complex formation, bilateral facet ankylosis, and central canal stenosis. L5-S1: Advanced left facet arthropathy with partial ankylosis. Impression: 1. Chronic T12, L1, and L2 burst fractures with T12 and L1 kyphoplasty. 2. Multilevel lumbar spondylosis as described without fracture. Computed tomography head without contrast History: Head injury after fall Findings: Transverse brain sections are obtained without contrast revealing moderate cerebral atrophy and chronic small vessel ischemic gliosis in periventricular white matter. Castelan-white differentiation is intact. There is no intracranial hemorrhage, mass effect, or fluid collection. Lens replacements are observed. The skull is intact. Impression: Chronic senescent brain changes. - Orders Orders: ED Orders Category Date Time Status CT BRAIN W/O CONTRAST Stat Exams 12/04/[address] L-SPINE W/O CONTRAST Stat Exams 12/04/[address] PELVIS W/O CONTRAST Stat Exams 12/04/18 Ordered fentaNYL CITRATE/PF [Sublimaze] Med 12/04/18 20:35 Discontinued 50 mcg IV NOW ONE Fall Physical Exam - Physical Exam General Appearance: alert, moderate distress Head: trauma (tenderness to the occipital region of the head) Neck: non-tender, painless ROM, trachea midline Eye: SHAAN, lids & conjunct. nml ENT: nml external inspection, airway nml Resp/CVS: chest non-tender, breath sounds nml, heart sounds nml Abdomen: soft, normal bowel sounds Neuro: oriented x3, CN's nml as tested, sensation nml, motor nml, turbo generator oiler nml, turbo generator oiler symmetrical Skin: color nml Back: vertebral tenderness (lumbar- right sided) Extremities: bony point-tenderness (right hip- posterior) Joint: limited ROM, unable to bear weight - Fernando Coma Score Eyes Open: Spontaneous Speech: Oriented Motor: Obeys Commands Discharge Clincal Impression: Contusion of right hip, Contusion of head, Lumbar contusion Referrals: Sajan Dewitt MD [Primary Care Provider] - 2 Days Condition: Good Disposition: 01 HOME, SELF-CARE Decision to Admit: NO Decision Time: 23:00
[2018-12-05 01:12] VITALS: BP 154/61
--- NOTE | 2018-12-05 05:30 | Diagnostic Imaging Report ---
SELMA CALDERÓN [facility] [address] [facility] [address] [place], [place]. [address] Report Submission Date: Dec 04, 2018 9:51:08 PM CDT Patient Study Name: EDUARDO DARLING Date: Dec 04, 2018 9:14:19 PM CDT Modality Type: CT\SR Gender: F Description: CT PELVIS W/O : 35 Institution: [facility] Physician: SELMA CALDERÓN Computed tomography pelvis without contrast History: Right hip pain and leg shortening after fall Findings: Transverse pelvis and proximal femur sections are obtained without contrast. Lower lumbar spondylosis, obesity, atherosclerosis, colonic diverticulosis, constipation, and hysterectomy are observed. The urinary bladder is intact. The osseous pelvis and proximal femora are intact without fracture or dislocation. There is no evidence of soft tissue hematoma. Impression: 1. No fracture. 2. Lumbar spondylosis, obesity, colonic diverticulosis, atherosclerosis, and hysterectomy. Electronically signed on Dec 04, 2018 9:51:08 PM CDT by: Yinka LEDESMA
--- NOTE | 2018-12-05 05:30 | Diagnostic Imaging Report ---
SELMA CALDERÓN [facility] [address] [facility] [address] [address] Report Submission Date: Dec 04, 2018 9:56:24 PM CDT Patient Study Name: EDUARDO DARLING Date: Dec 04, 2018 9:08:46 PM CDT Modality Type: CT\SR Gender: F Description: CT L-SPINE : 35 Institution: [facility] Physician: SELMA CALDERÓN Computed tomography lumbar spine without contrast History: Low back pain after fall Findings: Transverse lumbar spine sections are obtained without contrast. Chronic T12, L1, and L2 burst fracture deformities are observed. Kyphoplasty has been performed at T12 and L1. There is no evidence of acute fracture. L1-2: Bilateral facet arthropathy and mild central canal narrowing. L2-3: Marked disc space narrowing, disc osteophyte complex formation, and mild rotary lumbar curvature. L3-4: Mild diffuse disc bulging, moderate bilateral facet arthropathy, and borderline central canal stenosis. L4-5: Marked disc space narrowing, diffuse disc osteophyte complex formation, bilateral facet ankylosis, and central canal stenosis. L5-S1: Advanced left facet arthropathy with partial ankylosis. Impression: 1. Chronic T12, L1, and L2 burst fractures with T12 and L1 kyphoplasty. 2. Multilevel lumbar spondylosis as described without fracture. Electronically signed on Dec 04, 2018 9:56:24 PM CDT by: Yinka LEDESMA
--- NOTE | 2018-12-05 05:30 | Diagnostic Imaging Report ---
SELMA CALDERÓN [facility] [address] [facility] [address] [place] [address]. [id number] Report Submission Date: Dec 04, 2018 9:57:44 PM CDT Patient Study Name: EDUARDO DARLING Date: Dec 04, 2018 9:03:11 PM CDT Modality Type: CT\SR Gender: F Description: CT HEAD W/O : 35 Institution: [facility] Physician: SELMA CALDERÓN Computed tomography head without contrast History: Head injury after fall Findings: Transverse brain sections are obtained without contrast revealing moderate cerebral atrophy and chronic small vessel ischemic gliosis in periventricular white matter. Castelan-white differentiation is intact. There is no intracranial hemorrhage, mass effect, or fluid collection. Lens replacements are observed. The skull is intact. Impression: Chronic senescent brain changes. Electronically signed on Dec 04, 2018 9:57:44 PM CDT by: Yinka LEDESMA
== END 2018-12-04 22:40 | disposition home or self-care (01) ==
LOC: ED 19:53
DX: S00.93XA Contusion of unspecified part of head, initial encounter (principal); S70.01XA Contusion of right hip, initial encounter; S30.0XXA Contusion of lower back and pelvis, initial encounter; E66.9 Obesity, unspecified; M47.816 Spondylosis without myelopathy or radiculopathy, lumbar region; K57.90 Diverticulosis of intestine, part unspecified, without perforation or abscess without bleeding; Z90.710 Acquired absence of both cervix and uterus; W19.XXXA Unspecified fall, initial encounter; Y99.8 Other external cause status
CPT/HCPCS: 70450; 72131; 72192; 99282; 99283; J3010